=== PATIENT | female | born 1955 | race Hispanic/Latino ===

== ENCOUNTER 2017-11-14 16:49 | Emergency (ER) | payer BC ==
[~2017-11-14] VITALS: Ht 154.9 cm; Wt 89.2 kg
[~2017-11-14 16:49] MED LIST: CALCIUM500 MG/D PO; EVISTA60 MG PO; FLEXERIL PO; METFORMIN500 MG PO; METOPROL TAR25 MG PO; PRAVASTATIN10 MG PO; PRILOSEC20 MG PO; VASOTEC20 M1 PO
[2017-11-14 17:59] LABS: HEMATOCRIT 43.8 % (37.0-47.0); HEMOGLOBIN 14.5 g/dl (12.0-16.0); IMMATURE GRANULOCYTES 0.3 % (0.0-1.0); MEAN CELL VOLUME 84.9 fL CALC (80.0-100.0); MEAN CORPUSCULAR HGB 28.1 pG CALC (26.0-32.0); MEAN CORPUSCULAR HGB CONC 33.1 g/L CALC (32.0-36.0); NEUT# 4.1 thou/uL (2.00-7.15); RED BLOOD COUNT 5.16 mill/uL (4.20-5.60)
[2017-11-14] MEDS ORDERED: ASPIRIN ADULT L81 M2 PO (17:59)
[2017-11-14] MEDS ORDERED: AMLODIPINE BESY10 MG PO (18:02)
[2017-11-14] MEDS ORDERED: NEXIUM40 M1 PO (18:04)
[2017-11-14 18:06] LABS: ALBUMIN 4.6 g/dL (3.2-5.0); ALKALINE PHOSPHATASE 81 u/l (38-126); ANION GAP 18 (6-22 (CALC)); BILIRUBIN, TOTAL 0.4 mg/dL (0.0-1.4); BUN 16 mg/dL (8-23); BUN/CREATININE RATIO 19 (12-20 (CALC)); CARBON DIOXIDE 24 mmol/l (22-30); CHLORIDE 103 mmol/l (95-108); CREATININE 0.9 mg/dL (0.5-1.0); GFR > 60 ML/MIN (>=60 (CALC)); GFR FOR AFR.AMER. > 60 ML/MIN (>=60 (CALC)); LIPASE 193 u/l (23-300); SGOT/AST 39 u/l (9-36); SGPT/ALT 27 u/l (11-66); SODIUM 141 mmol/l (137-146); TOTAL PROTEIN 7.9 g/dL (6.3-8.2)
[2017-11-14 18:18] LABS: MYOGLOBIN 22 ng/mL (0 - 62)
[2017-11-14 18:31] VITALS: BP 119/66
== END 2017-11-14 18:40 | disposition home or self-care (01) | DRG 392 ==
LOC: ED 16:49
PROVIDERS: Emergency Medicine
DX: K21.9 Gastro-esophageal reflux disease without esophagitis (principal); E11.9 Type 2 diabetes mellitus without complications; I10 Essential (primary) hypertension
CPT/HCPCS: S0164

== ENCOUNTER 2019-07-29 19:51 | Emergency (ER) | payer MEDICARE ==
[~2019-07-29] VITALS: Ht 154.9 cm; Wt 90.0 kg
[~2019-07-29 19:51] MED LIST changes: +AMLODIPINE BESY10 MG PO; +ASPIRIN ADULT L81 M2 PO; +NEXIUM40 M1 PO
[2019-07-29] MEDS ORDERED: IBUPROFEN600 MG PO (22:27)
[2019-07-29 22:45] VITALS: BP 132/62
== END 2019-07-29 23:00 | disposition home or self-care (01) ==
LOC: ED 19:51
DX: S89.92XA Unspecified injury of left lower leg, initial encounter (principal); E11.9 Type 2 diabetes mellitus without complications; I10 Essential (primary) hypertension; X50.0XXA Overexertion from strenuous movement or load, initial encounter; Y93.89 Activity, other specified; Y92.009 Unspecified place in unspecified non-institutional (private) residence as the place of occurrence of the external cause; Z79.84 Long term (current) use of oral hypoglycemic drugs
CPT/HCPCS: L1830